=== PATIENT | female | born 1960 | race Caucasian/White ===

== ENCOUNTER → 2024-11-27 12:26 | Outpatient (REF) | payer OTHER, SELFPAY | LOC: PAVMRI 12:26 | PROVIDERS: ATTENDING PHYSICIAN Internal Medicine Gastroenterology; FAMILY PHYSICIAN Nurse Practitioner Adult Health | DX: R93.2 Abnormal findings on diagnostic imaging of liver and biliary tract (principal) | CPT/HCPCS: 74183; A9575 ==